=== PATIENT | female | born 1990 | race Caucasian/White ===

== ENCOUNTER 2023-04-27 13:37 | Inpatient (IN) | payer MEDICAID, SELFPAY ==
[2023-04-27 13:39] VITALS: BP 123/84; PULSE 103; RESP 16; TEMP 37; O2SAT 99
--- NOTE | 2023-04-27 13:57 | EX.ED.SAOD ---
HPI History of Present Illness Chief Complaint: Substance Abuse Narrative Narrative: 33-year-old female who denies significant past medical history presents for detox from alcohol and from fentanyl. She states she last detoxed a year ago in [place]. She states at that time she had gone through delirium tremens. Her last drink of alcohol was last night. She states she drinks the equivalent of 2 glasses of wine or at least 5 shots. She had been going without it for a little bit, but wanted to pregame before she came to detox. She also states that while she used to inject fentanyl, she smoked it earlier this morning. She presents with her friend for detox. She denies any suicidal ideation. She states she was nauseated and vomited 4 times. She states she is having problems with her skin. PFSH PFSH Allergy/AdvReac Type Severity Reaction Status Date / Time No Known Allergies Allergy Verified 04/27/23 13:40 Social History Smoking Status: Never smoker ROS ROS ED ROS Narrative Constitutional: No fever, no chills. HEENT: No sore throat. No neck pain. No loss of vision. No rhinorrhea. Cardiovascular: No chest pain. No palpitations. No pedal edema. Respiratory: No cough, no shortness of breath. Abdominal: No abdominal pain. Positive nausea and vomiting Genitourinary: No dysuria. No hematuria. Musculoskeletal: No myalgias. No arthralgias. Neurologic: No headaches. No dizziness. No lightheadedness. Shakiness. Skin: No rash. No change in color. Psychiatric: No depression. Mild anxiety. EXAM Physical Exam Narrative Exam Narrative: Afebrile. Vital signs noted. HEENT: Normocephalic. Atraumatic. PERRL, EOMI. Neck soft and supple. No point tenderness or step off. Cardiovascular: Regular rate and rhythm with intermittent tachycardia. No murmurs, rubs, or gallops appreciated. Respiratory: No tachypnea. Lungs clear to auscultation bilaterally. Gastrointestinal: Abdomen soft, nontender, with normoactive bowel sounds. No rebound or guarding. Neurological: Awake. Alert. Nonfocal, nonlateralizing. Skin: No rash. Normal color. No pallor. Musculoskeletal: No pedal edema. Full range of motion extremities. Const Vital Signs: 04/27/23 13:39 Temperature 98.6 F Temperature Source Temporal Pulse Rate 103 H Respiratory Rate 16 Blood Pressure 123/84 H Blood Pressure Mean 97 Pulse Ox 99 Oxygen Delivery Method Room Air MDM MDM MDM Narrative Medical decision making narrative: Initially, patient stated she was agreeable to detox. Screening labs will be obtained including serum I did have a lipase. This is to help rule out pancreatitis as a cause of her nausea and vomiting. As long as she is agreeable to the rules of detox, and she is not , I do feel that she would be amenable to detox. I will contact the hospitalist when appropriate. Of note, the patient did state that she has to inject fentanyl. Nurses attempted multiple times for IV placement for alcohol withdrawal and to obtain laboratory work. They were unsuccessful at this point in time. I will sign the patient out to the oncoming physician, Dr. Francesco Brown, to make final disposition on this patient. She is in stable condition. Discharge Plan Triage Chief Complaint: Substance Abuse ED Provider: Zeeshan Rivas Dx/Rx/DC Orders Primary Care Provider: Simon Prasad Referrals: Simon Prasad, [Primary Care Provider] -
[2023-04-27 15:13] LABS: Amphetamine Urine VISTA NEGATIVE (<1000 ng/mL); Barbiturate Urine VISTA NEGATIVE (< 200 ng/mL); Benzodiazepine Urine VISTA POSITIVE (< 200 ng/mL); Cocaine Urine VISTA NEGATIVE (< 300 ng/mL); Ecstacy Urine VISTA POSITIVE (< 500 ng/mL); Methadone Urine VISTA NEGATIVE (< 300 ng/mL); PCP Urine VISTA NEGATIVE (< 25 ng/mL); THC Urine VISTA NEGATIVE (< 50 ng/mL); Vista UDS pH Range 5
[2023-04-27 15:24] LABS: Absolute Lymphocyte Count 1.38 X10^3/uL (0.83-4.51); Absolute Neutrophil Count 4.6 X10^3/uL (2.0-7.7); Basophil# 0.05 X10^3/uL; Basophil% 0.8 % (0-1); Eosinophil# 0.13 X10^3/uL; Hematocrit 41.7 % (37-47); Hemoglobin 13.3 g/dL (12.0-15.0); Lymphocyte # 1.38 X10^3/ul (0.83-4.51); Lymphocyte % 21.1 % (19-41); Mean Corp Hgb Conc 31.9 g/dL (32-36); Mean Corpuscular Volume 84.6 fL (81-99); Mean Platelet Vol. 10.2 fl (6.2-12.0); Monocyte# 0.39 X10^3/uL; NRBC Flagged by Analyzer 0 % (0-5); Neutrophil # 4.57 X10^3/uL (2.7-7.7); Neutrophil % 69.8 % (47-70); Platelet Count 254 K/mm3 (150-450); RBC Distribution Width CV 14.8 % (11.6-14.6); RBC Distribution Width SD 45.6 fl (35.1-43.9); Red Blood Count 4.93 M/mm3 (4.2-5.4); White Blood Count 6.5 K/mm3 (4.4-11.0)
[2023-04-27 15:38] VITALS: RESP 16
[2023-04-27 15:41] LABS: ALB/GLOB Ratio 1.1 RATIO (0.9-2.4); AST(SGOT) 28 U/L (15-37); Alanine Aminotransfer ALT/SGPT 35 U/L (13-56); Albumin, Serum 4.4 g/dL (3.2-5.0); Alkaline Phosphatase 45 U/L (45-117); Anion Gap 4 (5-15); BUN 12 mg/dL (7-18); BUN/Creat Ratio 12.7 RATIO (10-20); Calcium,Total 9.4 mg/dL (8.5-10.1); Chloride 103 mmol/L (98-107); Creatinine, Serum 0.94 mg/dL (0.55-1.02); EST Glomerular Filtration Rate 73 mL/min (>60); Est Glom Filt Rate - Afr Amer 88 mL/min (>60); Glucose 103 mg/dL (74-106); Lipase 28 U/L (13-75); Protein, Total 8.4 g/dL (6.4-8.2); Sodium Level 137 mmol/L (136-145)
[2023-04-27 15:49] LABS: Internal QC Validated? YES +Cl - CLEAR BKGD; Pregnancy, Serum, hCG Quali. NEGATIVE Negative
[2023-04-27] MEDS: hydrOXYzine PAM 25 MG Capsule 50 MG PO ×2 (15:49→22:27)
[2023-04-27 15:50] LABS: Alcohol, Blood (Medical)-Serum < 3.0 mg/dL
--- NOTE | 2023-04-27 16:14 | PCM.HP.STD ---
HPI - General General Date of Admission: 04/27/23 HPI Narrative PURVI PATIÑO, is a 33 F who presents to the hospital requesting detox from opiates and alcohol abuse. She smokes fentanyl, she used to inject over a year ago but states that she has not done that anymore. She says that she has had significant withdrawal symptoms in the past and has gone through DTs due to alcohol. She drinks about a bottle to a bottle and a half of wine every night and her last use of alcohol was last evening. Her last use of fentanyl was earlier this morning. PFSH Allergy/AdvReac Type Severity Reaction Status Date / Time No Known Allergies Allergy Verified 04/27/23 13:40 Family History (Updated 04/27/23 @ 16:[address] Noah Oneal MD) Other Cancer no surgical history Social History Smoking Status: Never smoker ROS Constitutional Constitutional: Denies chills, fatigue, fever(s) or malaise Eyes Eyes: Denies blurry vision ENT HEENT: Denies headache(s) or nasal discharge Cardiovascular Cardiovascular: Denies chest pain, dyspnea on exertion or syncope Respiratory/Chest Respiratory/Chest: Denies cough, shortness of breath at rest or shortness of breath with exertion Gastrointestinal Gastrointestinal: Reports nausea and vomiting; Denies constipation or diarrhea Genitourinary Genitourinary: Denies dysuria Neurologic Neurologic: Denies focal weakness, numbness or tremor(s) Psychiatric Psychiatric: Reports anxiety; Denies depression Vital Signs Vital Signs Vital Signs: 04/27/23 13:39 Temperature 98.6 F Temperature Source Temporal Pulse Rate 103 H Respiratory Rate 16 Blood Pressure 123/84 H Blood Pressure Mean 97 Pulse Ox 99 Oxygen Delivery Method Room Air Physical Exam Narrative General: Alert, Oriented x3, Cooperative, No apparent distress HEENT: Atraumatic, PERRLA, EOMI, Normocephalic Oral: Moist Mucosa Neck: Supple, No JVD Lungs: Tachycardic, Normal air movement, No rhonchi, No wheeze, No rales Cardiovascular: Regular rate, Regular Rhythm, Normal S1, Normal S2, No murmurs Abdomen: Soft, Non Tender, Non-Distended, No Hepato-splenomegaly Extremities: No edema, Capillary Refill Less than 3 Seconds Skin: No rashes, No breakdown Musculoskeletal: No Tenderness to Palpation of Joints or Extremities Neurological: Cranial nerves II-XII grossly intact, Motor Exam 5/5 strength throughout, Sensory exam intact to light touch and pain Psych/Mental Status: Anxious and tearful Results Lab / Micro Data 04/27/23 15:15 04/27/23 15:15 Labs: Laboratory Results - last 24 hr 04/27/23 14:38: Urine Opiates Screen POSITIVE H, Urine Methadone Screen NEGATIVE, Ur Barbiturates Screen NEGATIVE, Ur Phencyclidine Scrn NEGATIVE, Ur Amphetamines Screen NEGATIVE, MDMA (Ecstasy) Screen POSITIVE H, U Benzodiazepines Scrn POSITIVE H, Urine Cocaine Screen NEGATIVE, U Cannabinoids Screen NEGATIVE, Ur Drug Screen Comment 04/27/23 15:15: WBC 6.5, RBC 4.93, Hgb 13.3, Hct 41.7, MCV 84.6, MCH 27.0, MCHC 31.9 L, RDW Std Deviation 45.6 H, RDW Coeff of Ct 14.8 H, Plt Count 254, MPV 10.2, Immature Gran % (Auto) 0.300, Neut % (Auto) 69.8, Lymph % (Auto) 21.1, [place] % (Auto) 6.0, Eos % (Auto) 2.0, Baso % (Auto) 0.8, Absolute Neuts (auto) 4.6, Absolute Lymphs (auto) 1.38, Nucleated RBC % 0, Sodium 137, Potassium 4.0, Chloride 103, Carbon Dioxide 30.0, Anion Gap 4 L, BUN 12, Creatinine 0.94, Est GFR (MDRD) Af Amer 88, Est GFR (MDRD) Non-Af 73, BUN/Creatinine Ratio 12.7, Glucose 103, Calcium 9.4, Total Bilirubin 0.30, AST 28, ALT 35, Alkaline Phosphatase 45, Total Protein 8.4 H, Albumin 4.4, Globulin 4.0, Albumin/Globulin Ratio 1.1, Lipase 28, Serum , Qual NEGATIVE, Ethyl Alcohol < 3.0 Assessment & Plan Assessment/Plan (1) Alcohol withdrawal: (2) Opiate withdrawal: PLAN: Plan 1. Alcohol and opiate withdrawal ? Continue with the alcohol and opiate withdrawal protocol ? We will have her follow-up in 180 as an outpatient ? She would like to be tested for HIV and hepatitis ? She denies tobacco use DVT: Ambulation 65 minutes was spent on direct patient care, including documentation as well as chart review and collaboration with colleagues Charges/Coding Visit Charges Inpatient E&M: 37635 Init Hosp L2
[2023-04-27 17:00] VITALS: RESP 16
[2023-04-27 18:15] VITALS: BMI 25.9
[2023-04-27 18:24] VITALS: BP 122/83; PULSE 109; RESP 16; TEMP 36.5; O2SAT 97
[2023-04-27 18:26] VITALS: BP 122/83; PULSE 109; RESP 16; TEMP 36.5; O2SAT 97
[2023-04-27] MEDS: Phenobarbital 32.4 MG Tablet 64.8 MG PO ×2 (18:36→22:27)
[2023-04-27] MEDS: traZODone 100 MG Tablet PO (22:27)
[2023-04-27 22:34] VITALS: BP 119/71; PULSE 93; RESP 16; TEMP 36.8; O2SAT 95
--- NOTE | 2023-04-27 22:40 | NURSING ---
pt trigger cows for subutex but states she is not ready to start due to concern for history of precipitous withdrawal. will continue to monitor
[2023-04-28] MEDS: Phenobarbital 32.4 MG Tablet 64.8 MG PO ×6 (02:41→22:20)
[2023-04-28] MEDS: hydrOXYzine PAM 25 MG Capsule 50 MG PO ×4 (02:41→22:20)
[2023-04-28 02:51] VITALS: BP 123/74; PULSE 107; RESP 16; TEMP 37.1; O2SAT 95
[2023-04-28] MEDS: Folic Acid 1 MG Tablet PO (07:57)
[2023-04-28] MEDS: Thiamine Hydrochloride 100 MG Tablet PO (07:57)
[2023-04-28] MEDS: Ensure Plus High Protein 120 ML LIQUID PO ×3 (07:59→17:15)
[2023-04-28 08:43] VITALS: BP 108/68; PULSE 97; RESP 16; TEMP 37.2; O2SAT 95
[2023-04-28 09:26] LABS: HIV - WCH Non-Reactive (Nonreactive)
[2023-04-28 11:40] VITALS: BP 108/71; PULSE 108; RESP 16; TEMP 36.6; O2SAT 98
--- NOTE | 2023-04-28 12:19 | ADDICTION ---
Addendum entered by Mary Alvarado 04/29/23 10:59: Pt is still unsure of inpatient or outpatient treatment. She reports that her and her bf made a pact to get sober together but nobody will tell her his plan. This worker informed pt that her recovery should be based on her own readiness for treatment. She reported that she will need to talk with him once they get out of detox and make that decision then. A list of resources and phone numbers were provided. Original Note: Pt was able to complete questions for addiction assessment but was unsure of where or if she wanted to follow up with treatment. Will follow up tomorrow.
[2023-04-28 14:11] VITALS: BP 107/67; PULSE 99; RESP 16; TEMP 37; O2SAT 94
--- NOTE | 2023-04-28 15:13 | PN.HOSP_ITS ---
Reason for Visit Reason for Visit: Diagnoses Alcohol use, unspecified with withdrawal, unspecified (04/27/23) Opioid use, unspecified with withdrawal (04/27/23) Subjective Subjective Patient admitted afternoon for alcohol and opiate detoxification. No acute events overnight. Patient seen at bedside this morning. Patient was asleep when I arrived in the room, and she remains very sleepy throughout my interview. Has not taken a dose of Subutex to this point, stated she did not want to because she was concerned about withdrawal. States the phenobarbital has made her sleepy. Denies any acute pain or discomfort. No other acute concerns. Objective Data Objective Data Vital Signs: Vital Signs Temp Pulse Resp BP Pulse Ox O2 Del Method 98.6 F 99 16 107/67 94 Room Air 04/28/23 14:11 04/28/23 14:11 04/28/23 14:11 04/28/23 14:11 04/28/23 14:11 04/28/23 14:11 Oxygen Delivery Method Room Air Weight: 68.492 kg Body Mass Index (BMI) 25.9 Lab / Micro Data 04/27/23 15:15 04/27/23 15:15 Labs: Laboratory Results - last 24 hr 04/27/23 14:38: Urine Opiates Screen POSITIVE H, Urine Methadone Screen NEGATIVE, Ur Barbiturates Screen NEGATIVE, Ur Phencyclidine Scrn NEGATIVE, Ur Amphetamines Screen NEGATIVE, MDMA (Ecstasy) Screen POSITIVE H, U Benzodiazepines Scrn POSITIVE H, Urine Cocaine Screen NEGATIVE, U Cannabinoids Screen NEGATIVE 04/27/23 15:15: WBC 6.5, RBC 4.93, Hgb 13.3, Hct 41.7, MCV 84.6, MCH 27.0, MCHC 31.9 L, RDW Std Deviation 45.6 H, RDW Coeff of Ct 14.8 H, Plt Count 254, MPV 10.2, Immature Gran % (Auto) 0.300, Neut % (Auto) 69.8, Lymph % (Auto) 21.1, [place] % (Auto) 6.0, Eos % (Auto) 2.0, Baso % (Auto) 0.8, Absolute Neuts (auto) 4.6, Absolute Lymphs (auto) 1.38, Nucleated RBC % 0, Sodium 137, Potassium 4.0, Chloride 103, Carbon Dioxide 30.0, Anion Gap 4 L, BUN 12, Creatinine 0.94, Est GFR (MDRD) Af Amer 88, Est GFR (MDRD) Non-Af 73, BUN/Creatinine Ratio 12.7, Glucose 103, Calcium 9.4, Total Bilirubin 0.30, AST 28, ALT 35, Alkaline Ph osphatase 45, Total Protein 8.4 H, Albumin 4.4, Globulin 4.0, Albumin/Globulin Ratio 1.1, Lipase 28, Serum , Qual NEGATIVE, Ethyl Alcohol < 3.0, HIV 1&2 Antibody Non-Reactive Physical Exam Const alert, no apparent distress and average body habitus Constitutional Narrative: Fairly somnolent but responding to questions with short appropriate answers, laying comfortably in bed, no acute distress. General Appearance: cooperative and comfortable HEENT normocephalic, head/scalp atraumatic, hearing grossly normal bilaterally, nasal mucous membranes and turbinates normal and moist oral mucous membranes Eyes PERRL, EOMs intact bilaterally and conjunctivae normal Neck full ROM, no lymphadenopathy and supple Lymph Lymphatic: no lymphadenopathy noted Chest inspection of chest normal Resp normal respiratory effort, normal air movement, no use of accessory muscles and clear to auscultation bilaterally Cardio no murmurs and peripheral pulses 2+ throughout Cardio Narrative: Tachycardic, regular rhythm. GI normal to inspection, nondistended, normoactive bowel sounds, soft to palpation, non-tender and non-distended Back/Spine normal ROM Extremity normal to inspection, full ROM and no pedal edema Skin no rashes or lesions noted Neuro no focal motor deficits and no sensory deficits noted Speech: speech normal Assessment & Plan Assessment/Plan (1) Opiate withdrawal: (2) Alcohol withdrawal: PLAN: Plan Patient is a 33-year-old female who presented to [facility] ED on 04/27/2023 for opiate and alcohol detoxification. 1. Opiate abuse Smokes fentanyl daily, last use on morning of admission. Used to inject over a year ago, does not do that anymore. Urine drug screen positive for opiates. ? Opiate withdrawal protocol ordered. Encouraged patient to take Subutex as recommended. Case management following. 2. Alcohol abuse Drinks 1-1.5 bottles of wine every night, last use on evening prior to admission. Reports history of significant withdrawal symptoms and reports going through DTs in the past. Alcohol level less than 3 on admit. ? Continue phenobarbital taper with alcohol withdrawal protocol. Case manageme nt following. DVT prophylaxis: Low risk, ambulate CODE STATUS: Full code, verified Expected disposition: Home, 2 to 3 days Total clinical time spent by myself addressing the patient's medical issues, reviewing all the data, and collaborating with patient's care team: 25 minutes. Charges/Coding Visit Charges Inpatient E&M: 17272 Subs Hosp L1
--- NOTE | 2023-04-28 15:43 | CHAPLAIN ---
Type of Pastoral Visit _x__ Initial Visit ___ Follow-up Visit ___ On-call Visit ___ General Patient Visit ___ Spiritual Assessment ___ Family Conference ___ Bereavement ___ Rapid Response ___ Code Blue ___ Other (describe below) Pastoral Care Referral From _x__ Patient ___ Family ___ Nurse ___ Physician ___ Entry Level Lab Technician ___ Density Control Puncher ___ Other (describe below) Sacrament/Intervention _x__ Active listening ___ Anointing ___ Hoahaoism ___ Bereavement ___ Communion _x__ Alize exploration ___ _x__ Life review _x__ Prayer ___ Reconciliation ___ Sacrament of Sick _x__ Supportive presence ___ Wedding ___ Other (describe below) Pastoral Comments patient is welcoming and immediately begins to tell her story, and emotions are coming to life she says; presents with regrets and heartaches about seeing so many people of overdose; pt feels deeply about friends and people and now has belief that she is letting them down; pt speaks of her age and losing out on time for serious relationships and family; pt states that she has been on my own since I was 16 and has lived most of that time in drug scene; pt speaks of praying to God for help and she asks for a Bible to read; pt is tearful often throughout her disclosure of information; pt welcomes someone to talk with as this is going so very slowly and for prayer for help/healing
[2023-04-28] MEDS: cloNIDine HCl 0.1 MG Tablet PO (17:13)
[2023-04-28] MEDS: traZODone 100 MG Tablet PO (22:20)
[2023-04-28] MEDS: Methocarbamol 750 MG Tablet PO (22:27)
[2023-04-28 22:29] VITALS: BP 100/67; PULSE 79; RESP 16; TEMP 36.4; O2SAT 100
[2023-04-29] MEDS: Phenobarbital 32.4 MG Tablet 64.8 MG PO ×4 (03:00→14:47)
[2023-04-29] MEDS: hydrOXYzine PAM 25 MG Capsule 50 MG PO (03:01)
[2023-04-29] MEDS: Ondansetron 8 MG Tablet PO (03:01)
[2023-04-29 03:05] VITALS: BP 99/62; PULSE 88; RESP 16; TEMP 36.6; O2SAT 98
[2023-04-29] MEDS: Methocarbamol 750 MG Tablet PO (06:03)
[2023-04-29] MEDS: Thiamine Hydrochloride 100 MG Tablet PO (10:25)
[2023-04-29] MEDS: Folic Acid 1 MG Tablet PO (10:25)
[2023-04-29] MEDS: Ensure Plus High Protein 120 ML LIQUID PO ×2 (10:25→11:27)
[2023-04-29 10:49] VITALS: BP 88/55; PULSE 85; RESP 16; TEMP 37.1; O2SAT 95
[2023-04-29 12:09] LABS: HEPATITIS B SURFACE AG Negative (Negative); Hep C Antibodies Non Reactive (Non Reactive); Hepatitis A IgM Antibody Negative (Negative); Hepatitis B Core AB IgM Negative (Negative)
[2023-04-29 15:01] VITALS: BP 123/76; PULSE 120; RESP 16; TEMP 37.3; O2SAT 99
--- NOTE | 2023-04-29 15:06 | CHAPLAIN ---
Type of Pastoral Visit ___ Initial Visit _x__ Follow-up Visit ___ On-call Visit ___ General Patient Visit ___ Spiritual Assessment ___ Family Conference ___ Bereavement ___ Rapid Response ___ Code Blue ___ Other (describe below) Pastoral Care Referral From _x__ Patient ___ Family ___ Nurse ___ Physician ___ Casino Banker ___ Recycling Program Manager ___ Other (describe below) Sacrament/Intervention _x__ Active listening ___ Anointing ___ Buddhism ___ Bereavement ___ Communion ___ Alize exploration ___ ___ Life review _x__ Prayer ___ Reconciliation ___ Sacrament of Sick ___ Supportive presence ___ Wedding ___ Other (describe below) Pastoral Comments follow up as requested by patient; pt states that she is managing okay but still somewhat foggy in the mind; pt reveals concerns about how her future will go and admits that she needs to learn how to cope with life and her past better; pt welcomes encouragement of spiritual support and prayer
--- NOTE | 2023-04-29 23:25 | DCINST_ITS ---
Discharge Instructions Diet Discharge Diet: No restrictions Activity Discharge Activity: Return to Normal Activity Weight Bearing Status: Full weight bearing Follow Up Care Test Results: Test results from this visit will be discussed in further detail at your follow- up appointment, if applicable. Discharge Plan Admission Admit Date/Time: 04/27/23 16:14 Primary Reason for Your Visit: opiate and alcohol detox Attending Provider: Shyam Lr Primary Care Provider: Simon Prasad Consulting Providers: Noah Oneal Discharge Orders/Prescriptions Referrals / Follow Up: Simon Prasad DO [Primary Care Provider] - Disposition Disposition (needs filled in before D/C Order can be placed): Against Medical Advice
--- NOTE | 2023-04-29 23:25 | PCM.DC.SUM ---
Providers Date of Admission: 04/27/23 Date of Discharge: 04/29/23 Primary Care Physician: Dr. Simon Prasad DO Reason For Visit: OPIATE AND ALCOHOL WITHDRAWAL Diagnosis Discharge Diagnosis (1) Opiate withdrawal: Status: Acute Code(s): F11.93 - Opioid use, unspecified with withdrawal (2) Alcohol withdrawal: Status: Acute Code(s): F10.939 - Alcohol use, unspecified with withdrawal, unspecified Hospital Course Operations None Procedures None Summary of Care Provided Minutes Spent on Discharge: 25 Hospital Course: Patient is a 33-year-old female who presented to [facility] ED on 04/27/2023 for opiate and alcohol detoxification. Short hospital course as noted below. Patient ultimately left AGAINST MEDICAL ADVICE on 04/29. Opiate abuse: Smokes fentanyl daily, last use on morning of admission. Used to inject over a year ago, does not do that anymore. Urine drug screen positive for opiates. - Opiate withdrawal protocol was ordered on admit but patient did not take any Subutex for fear of precipitating withdrawal. Case management, addiction medicine followed. Patient stated that she would reestablish with her previous outpatient therapist prior to leaving [facility], however it was unclear who this provider was, unable to locate in records. Alcohol abuse: Drinks 1-1.5 bottles of wine every night, last use on evening prior to admission. Reports history of significant withdrawal symptoms and reports going through DTs in the past. Alcohol level less than 3 on admit. - Placed on phenobarbital taper with alcohol withdrawal protocol on admit. Had moderate degree of somnolence on phenobarb, had no withdrawal symptoms. Case management, addiction medicine followed as above. Discharge diagnoses: - Opiate abuse - Alcohol abuse Total clinical time spent by myself addressing the patient's discharge needs: 25 minutes. Physical Exam Const alert, no apparent distress and average body habitus Constitutional Narrative: Fairly somnolent but responding to questions with short appropriate answers, laying comfortably in bed, no acute distress. General Appearance: cooperative and comfortable HEENT normocephalic, head/scalp atraumatic, hearing grossly normal bilaterally, nasal mucous membranes and turbinates normal and moist oral mucous membranes Eyes PERRL, EOMs intact bilaterally and conjunctivae normal Neck full ROM, no lymphadenopathy and supple Lymph Lymphatic: no lymphadenopathy noted Chest inspection of chest normal Resp normal respiratory effort, normal air movement, no use of accessory muscles and clear to auscultation bilaterally Cardio no murmurs and peripheral pulses 2+ throughout Cardio Narrative: Tachycardic, regular rhythm. GI normal to inspection, nondistended, normoactive bowel sounds, soft to palpation, non-tender and non-distended Back/Spine normal ROM Extremity normal to inspection, full ROM and no pedal edema Skin no rashes or lesions noted Neuro no focal motor deficits and no sensory deficits noted Speech: speech normal Weight / BMI Weight Weight: 68.492 kg Body Mass Index (BMI) 25.9 ABG / Lab / Microbiology Data 04/27/23 15:15 04/27/23 15:15 Laboratory: Laboratory Results - last 24 hr 04/27/23 15:15: Hepatitis A IgM Ab Negative, Hep Bs Antigen Negative, Hep B Core IgM Ab Negative, Hepatitis C Ab (EIA) Non Reactive, Hep C Ab Comment Comment D/C Instructions Discharge Diet: No restrictions Weight Bearing Status: Full weight bearing Meaningful Use Info Meaningful Use Diagnoses (Choose all that apply): None applicable Discharge Plan Admission Admit Date/Time: 04/27/23 16:14 Primary Reason for Your Visit: opiate and alcohol detox Attending Provider: Shyam Lr Primary Care Provider: Simon Prasad Consulting Providers: Noah Oneal Discharge Orders/Prescriptions Referrals / Follow Up: Simon Prasad DO [Primary Care Provider] - Disposition Disposition (needs filled in before D/C Order can be placed): Against Medical Advice Charges/Coding Visit Charges Inpatient E&M: 68412 Disch Hosp
== END 2023-04-29 15:51 | disposition left against medical advice (07) | DRG 770 ==
LOC: ED 15:05 → MS3 20:24
PROVIDERS: Emergency Medicine; Admitting Provider Family Medicine; Emergency Provider Emergency Medicine; PCP Family Medicine; Visit Provider Hospitalist
DX: F10.139 Alcohol abuse with withdrawal, unspecified (principal); F11.13 Opioid abuse with withdrawal; Y90.0 Blood alcohol level of less than 20 mg/100 ml
CPT/HCPCS: 80053; 80074; 80307; 82077; 83690; 84703; 85025; 86703; 97802; 99283; A4216

== ENCOUNTER 2024-09-02 04:50 | Outpatient (CLI) | payer MEDICAID, SELFPAY ==
[2024-09-02 04:59] VITALS: BMI 22.8
[2024-09-02 05:11] VITALS: BP 108/72; PULSE 76; RESP 16; TEMP 36.8; O2SAT 98
[2024-09-02 05:39] LABS: ROM Internal Control Test YES-OK TO RESULT pt. (Internal QC); ROM Patient Test Negative (Negative); Record Kit Lot#, ROM+ K3294
--- NOTE | 2024-09-02 07:45 | OB.TRI.NOTE ---
HPI - General General Date of Service: 09/02/24 HPI Narrative PURVI PATIÑO, is a 34 F @ 22.2 weeks who presents for R/o ROM. pt has had one visit elsewhere. currently incarcerated for fentanyl possession/use. per RN last use was about 48 hrs ago- pt currently receiving zofran, tylenol and klonopin - declined buprenophrine pt currently with nausea. pt denied to RN bleeding, cramping,or pain. pt reports good FM. PFSH PFSH Medical History (Updated 09/02/24 @ 07:[address] Yuliana Park MD) Substance abuse Alcohol abuse Anxiety Depression Home Medications ?Medication ?Instructions ?Recorded ?Last Taken ?Type acetaminophen 325 mg tablet 1,000 mg PO BID 09/02/24 09/01/24 History (Tylenol) clonidine HCl 0.1 mg tablet 0.1 mg PO BID 09/02/24 09/01/24 History ondansetron HCl 8 mg tablet 8 mg PO BID 09/02/24 09/01/24 History Allergy/AdvReac Type Severity Reaction Status Date / Time No Known Allergies Allergy Verified 09/02/24 05:07 Family History (Updated 04/27/23 @ 16:[address] Noah Oneal MD) Other Cancer Social History Smoking Status: Never smoker NST FHR Rate Baby A Baseline: tones 140-150 Uterine Activity:: no contractions Assessment & Plan (1) Alcohol withdrawal: (2) Opiate withdrawal: (3) Substance abuse: (4) No care in current in second trimester: (5) 22 weeks gestation of : PLAN: Plan 34yo @ 22 weeks- membranes intact- not in labor 1) membrane rupture was ruled out- pt is currently under care for withdrawal of opioids and ETOH plan for dc. 2) pt to establish care continue withdrawal management - will need growth us and routine visit established
== END 2024-09-02 05:55 | disposition home or self-care (01) ==
LOC: WPOUT 04:57 → WP 04:57
PROVIDERS: PCP Family Medicine; Visit Provider Obstetrics & Gynecology
DX: O99.322 Drug use complicating pregnancy, second trimester (principal); F11.13 Opioid abuse with withdrawal; F10.239 Alcohol dependence with withdrawal, unspecified; O99.312 Alcohol use complicating pregnancy, second trimester; Z3A.22 22 weeks gestation of pregnancy
CPT/HCPCS: 59050; 84112; 99221; G0378

== ENCOUNTER 2024-12-14 22:15 | Inpatient (IN) | payer MEDICAID, SELFPAY ==
[2024-12-14 22:25] VITALS: BMI 27.3
[2024-12-14 22:34] VITALS: RESP 16; TEMP 36.6
[2024-12-14 22:37] VITALS: BP 118/73; PULSE 100; O2SAT 92
[2024-12-14 23:19] LABS: ROM Internal Control Test YES-OK TO RESULT pt. (Internal QC)
[2024-12-14 23:20] LABS: ROM Patient Test POSITIVE (Negative); Record Kit Lot#, ROM+ K3358
[2024-12-15] VITALS (26 sets, daily range): BP systolic 94–165; BP diastolic 50–86; PULSE 82–111; RESP 16; TEMP 36.5–36.8; O2SAT 89–98
[2024-12-15] MEDS: Lactated Ringers 1,000 ML 50 ML IV (00:07)
[2024-12-15 00:33] LABS: Hematocrit 32.5 % (37-47); Hemoglobin 11.0 g/dL (12.0-15.0); Immature Granulocytes Count 0.030 X10^3/uL (0.0-0.0); Mean Corp Hgb Conc 33.8 g/dL (32-36); Mean Corpuscular Volume 90.0 fL (81-99); Mean Platelet Vol. 10.1 fl (6.2-12.0); NRBC Flagged by Analyzer 0 % (0-5); Platelet Count 236 K/mm3 (150-450); RBC Distribution Width CV 12.4 % (11.6-14.6); RBC Distribution Width SD 40.7 fl (35.1-43.9); Red Blood Count 3.61 M/mm3 (4.2-5.4); White Blood Count 8.1 K/mm3 (4.4-11.0)
[2024-12-15 01:03] LABS: Syphilis Antibodies Nonreactive (Nonreactive)
[2024-12-15 01:08] LABS: Barbiturate Urine NEGATIVE (< 200 ng/mL); Benzodiazepine Urine NEGATIVE (< 200 ng/mL); PCP Urine NEGATIVE (< 25 ng/mL); THC Urine NEGATIVE (< 50 ng/mL)
[2024-12-15] MEDS: Oxytocin 15 Units/NS 250ml 15 UNITS/250 ML IV.SOLN 2 UNITS IV (04:11)
--- NOTE | 2024-12-15 08:01 | PCM.HP.OB ---
HPI - General General Date of Admission: 12/14/24 HPI Narrative PURVI PATIÑO, is a 34 F at 40 weeks who presents with spontaneous rupture of membranes. Maternal Data Information GEOVANY Calculator Estimated Delivery Date Method Current WG Current Estimate 12/15/24 Manual 40w 0d PFSH PFSH Medical History (Updated 12/15/24 @ 08:07 by Lola Lopez CNM) Substance abuse Alcohol abuse Anxiety Depression Home Medications ?Medication ?Instructions ?Recorded ?Last Taken ?Type buprenorphine HCl 2 mg sublingual 2 mg sublingual BID drug use 12/14/24 12/14/24 History tablet vits no.60-ferrous tab 12/14/24 12/14/24 History fumarate 27 mg iron-folic acid 1 mg tablet Allergy/AdvReac Type Severity Reaction Status Date / Time peanut (peanuts) Allergy Swelling Verified 12/14/24 22:39 Family History (Updated 04/27/23 @ 16:[address] Noah Oneal MD) Other Cancer Surgical History History of colposcopy Social History Smoking Status: Never smoker History Elective abortions Hx Para 3 Spontaneous abortions Hx # Term Pregnancies Ectopic pregnancies Hx # Pregnancies Multiple births # of living children NST FHR Rate Baby A Baseline: 140 Variability:: Moderate Accelerations:: 15 x 15 Decelerations:: None NST Reactive:: Yes FHR Category:: Category I Uterine Activity:: TOCO reading every 2-3 minutes ROS Eyes Eyes: Denies blurry vision, change in vision or spots in vision ENT HEENT: Denies dizziness or headache(s) Cardiovascular Cardiovascular: Denies abdominal pain, chest pain or dyspnea Respiratory/Chest Respiratory/Chest: Denies cough, dyspnea, shortness of breath at rest or shortness of breath with exertion Gastrointestinal Gastrointestinal: Denies abdominal pain, diarrhea or vomiting Genitourinary Genitourinary: Denies change in urinary stream, difficulty urinating or dysuria Musculoskeletal Musculoskeletal: Reports none Integumentary Integumentary: Denies rash Neurologic Neurologic: Denies dizziness, headache(s), memory loss or weakness Psychiatric Psychiatric: Reports none Vital Signs Vital Signs Vital Signs: 12/14/24 22:34 12/14/24 22:34 12/14/24 22:34 Temperature 97.9 F Temperature Source Temporal Pulse Rate Respiratory Rate 16 Blood Pressure BP Systolic BP Diastolic Pulse Ox 12/14/24 22:37 12/14/24 22:37 12/14/24 22:37 Temperature Temperature Source Pulse Rate 100 Respiratory Rate Blood Pressure 118/73 BP Systolic 118 BP Diastolic 73 Pulse Ox 92 12/15/24 00:57 12/15/24 00:57 12/15/24 01:02 Temperature Temperature Source Pulse Rate 102 H 94 Respiratory Rate Blood Pressure BP Systolic BP Diastolic Pulse Ox 97 12/15/24 01:02 12/15/24 01:07 12/15/24 01:07 Temperature Temperature Source Pulse Rate 108 H Respiratory Rate Blood Pressure BP Systolic BP Diastolic Pulse Ox 97 97 12/15/24 02:18 12/15/24 02:18 12/15/24 02:18 Temperature 98.0 F Temperature Source Temporal Pulse Rate Respiratory Rate 16 Blood Pressure BP Systolic BP Diastolic Pulse Ox 12/15/24 02:19 12/15/24 02:19 12/15/24 05:00 Temperature Temperature Source Temporal Pulse Rate 93 Respiratory Rate Blood Pressure 122/66 H BP Systolic 122 BP Diastolic 66 Pulse Ox 12/15/24 05:00 12/15/24 05:00 12/15/24 05:01 Temperature 97.9 F Temperature Source Pulse Rate Respiratory Rate 16 Blood Pressure 122/68 H BP Systolic 122 BP Diastolic 68 Pulse Ox 12/15/24 05:01 12/15/24 05:01 12/15/24 06:14 Temperature Temperature Source Pulse Rate 94 Respiratory Rate Blood Pressure 105/62 BP Systolic 105 BP Diastolic 62 Pulse Ox 89 12/15/24 06:14 12/15/24 06:14 12/15/24 06:14 Temperature Temperature Source Temporal Pulse Rate 96 Respiratory Rate 16 Blood Pressure BP Systolic BP Diastolic Pulse Ox 12/15/24 06:14 12/15/24 07:43 12/15/24 07:43 Temperature 97.8 F Temperature Source Temporal Pulse Rate Respiratory Rate 16 Blood Pressure BP Systolic BP Diastolic Pulse Ox 12/15/24 07:43 12/15/24 07:44 12/15/24 07:44 Temperature 97.7 F L Temperature Source Pulse Rate 83 Respiratory Rate Blood Pressure 109/59 L BP Systolic 109 BP Diastolic 59 Pulse Ox 12/15/24 07:45 12/15/24 07:45 Temperature Temperature Source Pulse Rate 87 Respiratory Rate Blood Pressure BP Systolic BP Diastolic Pulse Ox 96 Weight Weight: 159 lb 6 oz Body Mass Index (BMI) 27.3 Physical Exam Const alert, oriented x3 and no apparent distress General Appearance: cooperative Orientation / Consciousness: awake Exam Limitations: no limitations HEENT normocephalic Head and Scalp: normal to inspection Eyes General Eye: normal appearance of both eyes Neck full ROM and no lymphadenopathy Lymph Lymphatic: no lymphadenopathy noted Chest inspection of chest normal Resp normal respiratory effort, normal air movement and clear to auscultation bilaterally Effort and Inspection: able to speak in complete sentences and symmetric chest movement Cardio regular rate and regular rhythm GI normal to inspection, nondistended, normoactive bowel sounds Manual OB Exam: presentation cephalic Back/Spine normal ROM Extremity full ROM and no calf tenderness Skin no rashes or lesions noted General Skin Exam: no breakdown Neuro oriented x3 and CN's II-XII intact bilaterally Psych mental status grossly normal and thought process normal Labs Labs Labs: Blood Type A POSITIVE Antibody Screen NEGATIVE Hct 32.5 % (37-47) L Hgb 11.0 g/dL (12.0-15.0) L Syphilis Total Ab Nonreactive (Nonreactive) Hep Bs Antigen Negative (Negative) Hepatitis C Ab (EIA) Non Reactive (Non Reactive) HIV 1&2 Antibody Non-Reactive (Nonreactive) Miscellaneous Test Pending Assessment & Plan (1) Substance abuse: (2) 40 weeks gestation of : (3) Spontaneous rupture of amniotic membranes: (4) History of drug dependence: (5) Anembryonic : (6) Limited care: PLAN: Plan SROM 12/14/24 8pm clear GBS negative /-2 Pitocin 8 mu/min- continue to increase per policy Epidural when indicated Dr. Cho aware of admission and is collaborating physician
--- NOTE | 2024-12-15 12:23 | EX.PCM.OBVAG ---
Assessment & Plan (1) (spontaneous vaginal delivery): (2) History of drug dependence: (3) Limited care: (4) Anxiety: (5) Depression: Maternal Data Information GEOVANY Calculator Estimated Delivery Date Method Current WG Current Estimate 12/15/24 Manual 40w 0d Vaginal Delivery Maternal Presentation Maternal Presentation: Spontaneous Rupture of Membranes Maternal Presentation: at 40 weeks gestation that arrived with spontaneous rupture of membranes. Type of Induction: Pitocin Vaginal Delivery Information Procedure Performed: Spontaneous Vaginal Delivery Surgeon/Practitioner: Lola Lopez Pre-Procedure Diagnosis: Term gestation, Spontaneous rupture of membranes Post-Procedure Diagnosis: , Live female infant Type of anesthesia: None Estimated Blood Loss: 100 Time of Delivery: 12:02 Findings Description of procedure: Patient quickly progressed to complete dilation with urge to push. Upon entering room, vigorous female was delivered by nursing staff and was skin to skin with patient. Patient bearing down to deliver placenta. Pitocin IV started for active management of the third stage of labor. 3 vessel cord clamped and cut. Placenta delivered spontaneously and intact. After inspection, vagina and perineum are intact. Vaginal sweep performed. Fundus is firm 2 below U and bleeding is hemostatic. Sponge and sharps counts correct. Patient and bonding well at this time. Dr. Cho notified of delivery. Routine post orders placed. Presentation: Vertex Amniotic Membrane Rupture Type: Spontaneous Amniotic Fluid Description: Clear Placental Delivery Description: Spontaneous Placenta Disposition: [facility] Specimen collected: No Cord Vessel Description: 3 Vessels Cord Entanglement: None Nuchal Cord Compression: Without compression Infant A Gender: Female (1 minute): 8 (5 minute): 9 Delayed Cord Clamping: Yes Gift Basket Packer telephone service representative: No Post Vaginal Deli Medications given after delivery: IV Pitocin Episiotomy Description: None Laceration: None Complication Complications: No
[2024-12-15] MEDS: Oxytocin 15 Units/NS 250ml 15 UNITS/250 ML IV.SOLN 83 UNITS IV (12:40)
[2024-12-15] MEDS: Senna/Docusate Sodium 1 Tablet PO (21:04)
[2024-12-16 03:42] VITALS: BP 112/86; PULSE 81; RESP 16; TEMP 36.4; O2SAT 97
--- NOTE | 2024-12-16 06:33 | PCM.PN.CNM ---
Subjective Subjective Patient seen at bedside. Denies any pain. Ambulating and voiding without difficulty. Lochia decreasing. Objective Data Objective Data Vital Signs: Vital Signs Temp Pulse Resp BP Pulse Ox O2 Del Method 97.6 F L 81 16 112/86 H 97 Room Air 12/16/24 03:42 12/16/24 03:42 12/16/24 03:42 12/16/24 03:42 12/16/24 03:42 12/16/24 03:42 Oxygen Delivery Method Room Air Weight: 159 lb 6 oz Body Mass Index (BMI) 27.3 Intake & Output: Intake and Output for Last 24 Hours 12/14/24 12/15/24 12/16/24 23:59 23:59 23:59 Intake Total 1172.27 / 1172.27 Output Total 100 / 100 Balance 1072.27 / 1072.27 Lab / Micro Data Attestation: I reviewed the patient's lab results. 12/15/24 00:07 ROS Eyes Eyes: Denies blurry vision, change in vision or spots in vision ENT HEENT: Denies dizziness or headache(s) Cardiovascular Cardiovascular: Denies abdominal pain, chest pain or dyspnea Respiratory/Chest Respiratory/Chest: Denies cough, dyspnea, shortness of breath at rest or shortness of breath with exertion Gastrointestinal Gastrointestinal: Denies abdominal pain, diarrhea or vomiting Genitourinary Genitourinary: Denies change in urinary stream, difficulty urinating or dysuria Musculoskeletal Musculoskeletal: Reports none Integumentary Integumentary: Denies rash Neurologic Neurologic: Denies dizziness, headache(s), memory loss or weakness Physical Exam Const alert and no apparent distress General Appearance: cooperative and comfortable Exam Limitations: no limitations HEENT normocephalic Eyes General Eye: normal appearance of both eyes Neck full ROM General: normal visual inspection Chest Chest: symmetrical chest wall rise Resp normal respiratory effort and normal air movement Effort and Inspection: symmetric chest movement Auscultation: clear to auscultation bilaterally Cardio regular rate and regular rhythm GI normal to inspection, nondistended, normoactive bowel sounds Back/Spine normal ROM Extremity full ROM and no calf tenderness General Extremity: normal exam except as noted Skin no rashes or lesions noted Neuro oriented x3 Speech: speech normal Psych mental status grossly normal Thought Process: normal thought process Assessment & Plan (1) Depression: (2) Anxiety: (3) (spontaneous vaginal delivery): (4) History of drug dependence: PLAN: Plan PPD 1 Baby to stay for observation for 5-7 days Continue Subutex 2 mg PO BID
[2024-12-16 07:50] VITALS: BP 110/76; PULSE 85; RESP 16; TEMP 36.6; O2SAT 96
[2024-12-16] MEDS: Senna/Docusate Sodium 1 Tablet PO (07:58)
[2024-12-16 14:30] VITALS: BP 115/81; PULSE 92; RESP 16; TEMP 36.6
[2024-12-16 21:00] VITALS: BP 113/81; PULSE 73; RESP 16; TEMP 36.7; O2SAT 96
[2024-12-17 02:36] VITALS: BP 106/76; PULSE 85; RESP 16; TEMP 36.6; O2SAT 96
[2024-12-17 08:00] VITALS: BP 119/80; PULSE 84; RESP 16; TEMP 36.6; O2SAT 96
--- NOTE | 2024-12-17 08:38 | PCM.PROGNOTE ---
Subjective Subjective patient seen at bedside, doing well. Patient reports good pain control. lochia mild. Objective Data Objective Data Vital Signs: Vital Signs Temp Pulse Resp BP Pulse Ox O2 Del Method 97.8 F 85 16 106/76 96 Room Air 12/17/24 02:36 12/17/24 02:36 12/17/24 02:36 12/17/24 02:36 12/17/24 02:36 12/17/24 02:36 Oxygen Delivery Method Room Air Weight: 72.291 kg Body Mass Index (BMI) 27.3 Intake & Output: Intake and Output for Last 24 Hours 12/15/24 12/16/24 12/17/24 23:59 23:59 23:59 Intake Total 1172.27 / 1172.27 Output Total 100 / 100 Balance 1072.27 / 1072.27 Lab / Micro Data 12/15/24 00:07 Physical Exam Narrative Abd: fundus firm. Const alert and oriented x3 General Appearance: cooperative HEENT normocephalic Neck General: normal visual inspection GI soft to palpation and non-distended GI Narrative: Fundus firm Extremity normal to inspection and no calf tenderness Skin no rashes or lesions noted Neuro oriented x3 and CN's II-XII intact bilaterally Psych mental status grossly normal Assessment & Plan Assessment/Plan (1) (spontaneous vaginal delivery): (2) Anxiety: (3) Depression: (4) Limited care: (5) History of drug dependence: PLAN: Plan PPD#2 , Doing well Routine care pain mgmt [facility]
--- NOTE | 2024-12-17 08:39 | DCINST_ITS ---
Discharge Instructions DC O2, CPAP, BIPAP needs Home O2 Discharge instructions: No Dressing / Incision May resume sexual activity in: 6-8 weeks Dressing / Incision Call your doctor if you observe: Fever of 101 or Higher, Inability to urinate, Using more than 1 pad per hour and Uncontrolled pain Follow Up Care Please Follow Up With: Yuliana Park MD When: 1 week post and again at 6 weeks post . [phone]: if you had PREECLAMPSIA or other Blood pressure concerns in labor you should be seen in 48-72 hours in the office. Test Results: Test results from this visit will be discussed in further detail at your follow- up appointment, if applicable. Discharge Plan Admission Admit Date/Time: 12/14/24 23:45 Attending Provider: Svetlana Cho Primary Care Provider: Simon Prasad Discharge Orders/Prescriptions Prescriptions: New acetaminophen 500 mg Tablet 1,000 mg PO Q6H PRN PRN (Reason: Pain 1-10 Or Fever) Qty: 0 0RF naproxen 500 mg Tablet 500 mg PO Q8H PRN PRN (Reason: Pain Score 1-10) Qty: 0 0RF Continued buprenorphine HCl 2 mg tablet, sublingual 2 mg sublingual BID vit 60-iron fum-folic 27 mg iron- 1 mg tablet Referrals / Follow Up: Smion Prasad DO [Primary Care Provider] - Disposition Disposition (needs filled in before D/C Order can be placed): Home, Self Care
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
--- NOTE | 2024-12-17 10:10 | CASEMGMT ---
Labor and Delivery Social Work Date: 12/16/24 Time: 1400 [facility] health service worker presented to unit to meet with mother of baby (MOB- Renetta). Sw presented to bedside, and informed MOB that Children Services sales representative printing paper was here to meet with her. MOB stated that she was ready to talk with them. Sw introduced MOB to the health service worker and then exited the room. Children services then left the unit following their conversation with MOB. Sw to follow up with Children services tomorrow, 12/17/24 RACHEL Su, CONCRETE WORKER
--- NOTE | 2024-12-21 10:48 | NURSING ---
edited delivery record to include provider name to pull to delivery log. Efrain
== END 2024-12-17 10:00 | disposition home or self-care (01) | DRG 560 ==
PROVIDERS: Admitting Provider Obstetrics & Gynecology; PCP Family Medicine; Referring Provider Obstetrics & Gynecology; Visit Provider Obstetrics & Gynecology
DX: O48.0 Post-term pregnancy (principal); Z37.0 Single live birth; O99.344 Other mental disorders complicating childbirth; F19.21 Other psychoactive substance dependence, in remission; F32.A Depression, unspecified; F41.9 Anxiety disorder, unspecified; N96 Recurrent pregnancy loss; O99.893 Other specified diseases and conditions complicating puerperium; Z3A.40 40 weeks gestation of pregnancy; O99.325 Drug use complicating the puerperium
CPT/HCPCS: 59025; 59050; 80307; 84112; 85025; 86780; 86850; 86900; 86901; 99221; G0378